=== PATIENT | male | born 1945 | race African-American/Black ===

== ENCOUNTER 2016-07-31 23:49 | Inpatient (IN) | payer MEDICARE, OTHER ==
[2016-08-01] MEDS ORDERED: LIDOCAINE 2% URO-JET 5 ML KIT MM ONE (00:12)
--- NOTE | 2016-08-01 00:31 | ER Document Report ---
ED General - General Chief Complaint: Altered Mental Status Stated Complaint: ALTERED MENTAL STATUS Time Seen by Provider: 08/01/16 00:16 Notes: Patient is a 70-year-old male who comes emergency department with chief complaint of altered mental status. is at bedside, she states that 1330 patient started to act strange, she states he started to become forgetful mid conversation, she states that later in the evening he made a bizarre statement which made her concerned (he asked how far the child support payment center is from his relative's house). He states he also had an episode of incontinence earlier in the day which is uncharacteristic. No fever, no head injury. Patient states he has a slight headache on the left side of his head, states he did not mention this until after they came to the emergency department. Daily baby aspirin. Past medical history of HI in 2012, type 2 diabetes, hypertension, hyperlipidemia, he is on metoprolol for a "rapid heart rate", to confirm atrial fibrillation or SVT. TRAVEL OUTSIDE OF THE [place] IN LAST 30 DAYS: No - Related Data Allergies/Adverse Reactions: No Known Allergies Allergy (Unverified 05/24/13 20:06) Past Medical History - General Information source: Patient - Social History Smoking Status: Never Smoker Frequency of alcohol use: None Drug Abuse: None Lives with: Family Family History: Reviewed & Not Pertinent Patient has suicidal ideation: No Patient has homicidal ideation: No - Past Medical History Cardiac Medical History: Reports: Hx Coronary Artery Disease, Hx Hypercholesterolemia, Hx Hypertension Endocrine Medical History: Reports: Hx Diabetes Mellitus Type 2 Renal/ Medical History: Denies: Hx Peritoneal Dialysis Psychiatric Medical History: Denies: Hx Depression - Immunizations Immunizations up to date: Yes Hx Diphtheria, Pertussis, Tetanus Vaccination: Yes Hx Pneumococcal Vaccination: 03/16/12 Review of Systems - Review of Systems Constitutional: No symptoms reported EENT: No symptoms reported Cardiovascular: No symptoms reported Respiratory: No symptoms reported Gastrointestinal: No symptoms reported Genitourinary: No symptoms reported Male Genitourinary: No symptoms reported Musculoskeletal: No symptoms reported Skin: No symptoms reported Hematologic/Lymphatic: No symptoms reported Neurological/Psychological: See HPI Physical Exam - Vital signs Vitals: Temp Pulse Resp BP Pulse Ox 97.6 F 85 18 141/85 H 100 07/31/16 23:55 07/31/16 23:55 07/31/16 23:55 07/31/16 23:55 07/31/16 23:55 Interpretation: Normal - General General appearance: Appears well, Alert In distress: None - HEENT Head: Normocephalic, Atraumatic Eyes: Normal Conjunctiva: Normal Extraocular movements intact: Yes Eyelashes: Normal Pupils: PERRL Sinus: Normal Nasal: Normal Mouth/Lips: Normal Mucous membranes: Normal Pharynx: Normal Neck: Normal - Respiratory Respiratory status: No respiratory distress Chest status: Nontender Breath sounds: Normal Chest palpation: Normal - Cardiovascular Rhythm: Regular. No: Tachycardia Heart sounds: Normal auscultation, S1 appreciated, S2 appreciated Murmur: No - Abdominal Inspection: Normal Distension: No distension Bowel sounds: Normal Tenderness: Nontender Organomegaly: No organomegaly - Back Back: Normal, Nontender. No: Tender - Extremities General upper extremity: Normal inspection, Nontender, Normal strength, Normal temperature General lower extremity: Normal inspection, Nontender, Normal strength, Normal temperature - Neurological Neuro grossly intact: Yes Cognition: Normal, Other - occassionally gives slow response, fully oriented except cannot remember president (knows person, family, year, month, and location) Orientation: AAOx4. No: Disoriented to person, Disoriented to place, Disoriented to time, Disoriented to events [place] Coma Scale Eye Opening: Spontaneous [place] Coma Scale Verbal: Oriented [place] Coma Scale Motor: Obeys Commands [place] Coma Scale Total: 15 Speech: Normal Motor strength normal: LUE, RUE, LLE, RLE Additional motor exam normals: Equal patient liaison Sensory: Normal - Psychological Associated symptoms: Normal affect, Normal mood - Skin Skin Temperature: Warm Skin Moisture: Dry Skin Color: Normal Course - Re-evaluation Re-evalutation: Patient is oriented to person, place, family members, he is slow to respond to questions, he is oriented to month and year but cannot remember the president. He states he feels like he is having trouble remembering things. No neurologic deficits on examination otherwise. Pending workup. 08/01/16 00:30 EKG showed segment elevation in anterior leads, shows what appears to be a sinus arrhythmia with P waves that are present, rate of 80. No significant changes compared to prior. Appears to be J-point elevation. This was reviewed with Dr. Banks. CBC, chemistry, urinalysis generally unremarkable. Cardiac enzymes negative. Chest x-ray is unremarkable CAT scan of the head showing left basal ganglia lesion - mass versus CVA. Discussed with Dr. Banks, recommends neurosurgical consult. 08/01/[address] Jag Hutton, neurosurgery at [facility]. He recommends that patient be worked up to evaluate if this is CVA versus mass with MRI, and if this is a mass that patient can be seen in the office on Thursday with an oral steroid treatment pending followup. Obviously if this is CVA then patient can be treated accordingly. Discussed with Dr. Banks again, recommends discussion with internal medicine for workup and treatment. Discussed with Dr. Guzman, patient will be admitted to the hospital, MRI is ordered (confirmed order preference with radiologist). Patient remains neurologically unchanged at time of admission. - Vital Signs Vital signs: Temp Pulse Resp BP Pulse Ox 97.6 F 85 18 141/85 H 99 07/31/16 23:55 07/31/16 23:55 07/31/16 23:55 07/31/16 23:55 08/01/16 00:12 - Laboratory Result Diagrams: 08/01/16 00:50 08/01/16 00:50 Laboratory results interpreted by me: 08/01/16 08/01/16 08/01/16 00:50 00:50 02:10 Hgb 12.9 L RDW 14.2 H BUN 21 H Creatinine 1.29 H Est GFR (Non-Af Amer) 55 L Direct Bilirubin 0.5 H Urine Protein 100 H Urine Glucose (UA) 50 H Discharge - Discharge Clinical Impression: Abnormal CT scan of head Altered mental status Qualifiers: Altered mental status type: transient alteration of awareness Qualified Code(s) : R40.4 - Transient alteration of awareness Condition: Stable Disposition: ADMITTED INPATIENT Admitting Provider: Megan Unit Admitted: [facility]
[2016-08-01 01:04] LABS: ABSOLUTE EOSINOPHILS # (AUTO) 0.1 10^3/uL (0.0-0.6); ABSOLUTE LYMPHOCYTES (AUTO) 1.8 10^3/uL (0.5-4.7); ABSOLUTE MONOCYTES (AUTO) 0.7 10^3/uL (0.1-1.4); ABSOLUTE NEUT (AUTO) 3.1 10^3/uL (1.7-8.2); BASOPHILS % (AUTO) 0.7 % (0-2); EOSINOPHILS % (AUTO) 1.5 % (0-6); HEMATOCRIT 39.7 % (37.9-51.0); HEMOGLOBIN 12.9 g/dL (13.5-17.0); MEAN CORPUSCULAR HEMOGLOBIN 27.2 pg (27.0-33.4); MEAN CORPUSCULAR HGB CONC 32.6 g/dL (32.0-36.0); MEAN CORPUSCULAR VOLUME 83 fl (80-97); MONOCYTES % (AUTO) 12.5 % (3-13); RED BLOOD COUNT 4.76 10^6/uL (4.35-5.55); RED CELL DISTRIBUTION WIDTH 14.2 % (11.5-14.0); SEGMENTED NEUTROPHILS % (AUTO) 54.3 % (42-78); WHITE BLOOD COUNT 5.7 10^3/uL (4.0-10.5)
[2016-08-01 01:16] LABS: ALANINE AMINOTRANSFERASE 36 U/L (21-72); ALBUMIN 4.3 g/dL (3.5-5.0); ALKALINE PHOSPHATASE 73 U/L (38-126); ANION GAP 12 (5-19); ASPARTATE AMINO TRANSFERASE 23 U/L (17-59); BILIRUBIN,DIRECT 0.5 mg/dL (0.0-0.4); BILIRUBIN,TOTAL 0.9 mg/dL (0.2-1.3); BLOOD UREA NITROGEN 21 mg/dL (7-20); CALCIUM 9.8 mg/dL (8.4-10.2); CARBON DIOXIDE 25 mmol/L (22-30); CHLORIDE 106 mmol/L (98-107); CREATINE KINASE 102 U/L (55-170); CREATININE RESULT 1.29 mg/dL (0.52-1.25); GLUCOSE 95 mg/dL (75-110); MAGNESIUM 1.8 mg/dL (1.6-2.3); POTASSIUM 4.3 mmol/L (3.6-5.0); SODIUM 142.9 mmol/L (137-145); TOTAL PROTEIN 7.6 g/dL (6.3-8.2)
[2016-08-01 01:17] LABS: ALCOHOL < 10 mg/dL (NONE DETECTED)
[2016-08-01 01:33] LABS: CREATINE KINASE MB 0.68 ng/mL (<4.55)
[2016-08-01 01:34] LABS: TROPONIN I < 0.012 ng/mL
[2016-08-01 02:31] LABS: APPEARANCE,URINE CLEAR; BILIRUBIN,URINE NEGATIVE (NEGATIVE); GLUCOSE, URINE 50 mg/dL (NEGATIVE); KETONES,URINE NEGATIVE (NEGATIVE); LEUKOCYTE ESTERASE,URINE NEGATIVE (NEGATIVE); NITRITE,URINE NEGATIVE (NEGATIVE); PROTEIN,URINE 100 mg/dL (NEGATIVE); URINE SPECIFIC GRAVITY 1.015; UROBILINOGEN,URINE NEGATIVE mg/dL (<2.0)
[2016-08-01 02:46] LABS: URINE BARBITURATES SCREEN NEGATIVE; URINE METHADONE SCREEN NEGATIVE; URINE OPIATES LOW NEGATIVE; URINE PHENCYCLIDINE SCREEN NEGATIVE
[2016-08-01] MEDS ORDERED: ACETAMINOPHEN 325 MG TABLET PO ONE (04:32)
--- NOTE | 2016-08-01 07:09 | EKG REPORT ---
SEVERITY:- ABNORMAL ECG - ATRIAL FIBRILLATION, V-RATE 79-81 LAD, CONSIDER LAFB OR INFERIOR INFARCT LEFT VENTRICULAR HYPERTROPHY ANTERIOR INFARCT, POSSIBLY ACUTE : Confirmed by: Viktoriya Cordon MD 01-Aug-2016 07:09:12
[2016-08-01] MEDS ORDERED: DEXTROSE 50%-WATER 25 GM/50 ML DISP.SYRIN IV PRN ×2 (11:55)
[2016-08-01] MEDS ORDERED: DEXTROSE 40% GEL 15 GM TUBE PO PRN ×2 (11:55)
[2016-08-01] MEDS ORDERED: GLUCAGON,HUMAN RECOMB 1 MG INJ IM PRN (11:55)
[2016-08-01] MEDS ORDERED: (PENDING PHARMACY ID) (Alogliptin Benz/Pioglitazone [Oseni 25-30 Mg Tablet] 1 TAB) PO SCH (12:00)
[2016-08-01] MEDS ORDERED: (PENDING PHARMACY ID) (Valsartan [Diovan] 320 MG) PO SCH (12:00)
[2016-08-01] MEDS ORDERED: METOPROLOL TARTRATE 100 MG TABLET PO ONE (12:30)
[2016-08-01] MEDS ORDERED: MONTELUKAST SODIUM 10 MG TABLET PO ONE (12:30)
[2016-08-01] MEDS ORDERED: VALSARTAN 160 MG TABLET PO ONE (13:00)
[2016-08-01] MEDS ORDERED: ASPIRIN 81 MG TABLET, ENT COATED PO ONE (13:00)
[2016-08-01] MEDS ORDERED: GLIMEPIRIDE 4 MG TABLET PO ONE (13:00)
[2016-08-01] MEDS ORDERED: LORATADINE 10 MG TABLET PO ONE (13:00)
[2016-08-01] MEDS: METFORMIN HCL 500 MG TABLET PO SCH (17:07)
[2016-08-01] MEDS: ASPIRIN/DIPYRIDAMOLE 25-200 MG 1 CAP.SR CPMP.12HR PO SCH (18:33)
[2016-08-01 18:37] LABS: ABSOLUTE BASOPHILS # (AUTO) 0.1 10^3/uL (0.0-0.2); ABSOLUTE LYMPHOCYTES (AUTO) 1.5 10^3/uL (0.5-4.7); ABSOLUTE MONOCYTES (AUTO) 0.7 10^3/uL (0.1-1.4); ABSOLUTE NEUT (AUTO) 4.8 10^3/uL (1.7-8.2); BASOPHILS % (AUTO) 0.8 % (0-2); EOSINOPHILS % (AUTO) 0.7 % (0-6); HEMATOCRIT 40.4 % (37.9-51.0); HEMOGLOBIN 13.2 g/dL (13.5-17.0); HGB HCT DIFFERENCE -0.8; MEAN CORPUSCULAR HEMOGLOBIN 27.1 pg (27.0-33.4); MEAN CORPUSCULAR HGB CONC 32.7 g/dL (32.0-36.0); MEAN CORPUSCULAR VOLUME 83 fl (80-97); MONOCYTES % (AUTO) 9.2 % (3-13); RED BLOOD COUNT 4.88 10^6/uL (4.35-5.55); RED CELL DISTRIBUTION WIDTH 14.5 % (11.5-14.0); SEGMENTED NEUTROPHILS % (AUTO) 68.3 % (42-78); WHITE BLOOD COUNT 7.1 10^3/uL (4.0-10.5)
[2016-08-01 18:54] LABS: PROTHROMBIN TIME 11.9 SEC (11.4-15.4)
[2016-08-01 18:59] LABS: ALANINE AMINOTRANSFERASE 35 U/L (21-72); ALBUMIN 3.8 g/dL (3.5-5.0); ALKALINE PHOSPHATASE 76 U/L (38-126); ANION GAP 10 (5-19); ASPARTATE AMINO TRANSFERASE 20 U/L (17-59); BILIRUBIN,DIRECT 0.3 mg/dL (0.0-0.4); BILIRUBIN,TOTAL 0.7 mg/dL (0.2-1.3); BLOOD UREA NITROGEN 23 mg/dL (7-20); CALCIUM 9.4 mg/dL (8.4-10.2); CARBON DIOXIDE 24 mmol/L (22-30); CHLORIDE 101 mmol/L (98-107); CREATINE KINASE 68 U/L (55-170); CREATININE RESULT 1.32 mg/dL (0.52-1.25); GLUCOSE 390 mg/dL (75-110); POTASSIUM 4.8 mmol/L (3.6-5.0); SODIUM 135.1 mmol/L (137-145); TOTAL PROTEIN 6.7 g/dL (6.3-8.2)
--- NOTE | 2016-08-01 20:34 | PDOC H&P ---
History of Present Illness Admission Date/PCP: 08/01/16 11:55 AMENA BROWNE MD History of Present Illness: YOLY DIANE is a 70 year old male, he came to the emergency room this morning with his because of encephalopathy, patient spouse stated that that the patient has become more forgetful recently, he also had episode of urinary incontinence which is uncharacteristic , he also had a headache. He was seen and evaluated in the emergency room, initially CT scan of the head was done , it showed 3.7 low attenuation heterogeneous mass of the left anterior basal ganglia with moderate compression of the frontal horn the left lateral ventricle. The CAT scan of the head , could not differentiate between a stroke or neoplasm, MRI of the head recommended. MRI showed high-signal intensity lesions scattered throughout the white matter on flair imaging with distribution suggesting microvascular ischemic change. There was also rounded area of abnormal signal in the left lentiform nucleus measuring 2.5 x 3.5 cm. On diffusion imaging there is heterogeneous increased signal in the left basal ganglia most likely representing a recent subacute infarct. Past Medical History Cardiac Medical History: Reports: Coronary Artery Disease, Hyperlipidema, Hypertension Endocrine Medical History: Reports: Diabetes Mellitus Type 2 Social History Lives with: Family Smoking Status: Never Smoker Frequency of Alcohol Use: None Hx Recreational Drug Use: No Drugs: None Hx Prescription Drug Abuse: No Family History Family History: Reviewed & Not Pertinent Parental Family History Reviewed: Yes Children Family History Reviewed: Yes Sibling(s) Family History Reviewed.: Yes Medication/Allergy Home Medications: Alogliptin Chrsi/Pioglitazone [Oseni 25-30 mg Tablet] 1 tab PO DAILY 08/01/16 Aspirin [Ecotrin 81 mg EC Tablet] 81 mg PO DAILY 08/01/16 Atorvastatin Calcium [Lipitor 80 mg Tablet] 80 mg PO QHS 08/01/16 Fexofenadine HCl [Aure] 180 mg PO DAILY 08/01/16 Glimepiride [Amaryl 4 mg Tablet] 4 mg PO DAILY 08/01/16 Insulin Aspart [Novolog Flexpen] 0 unit SUBCUT .SLD SCALE 08/01/16 Insulin Glargine,Hum.rec.anlog [Lantus Insulin 100 Unit/mL] 45 unit SUBCUT QHS 08/01/16 Metformin HCl [Glucophage] 1,000 mg PO BIDACBS 08/01/16 Metoprolol Tartrate [Lopressor 100 mg Tablet] 200 mg PO DAILY 08/01/16 Montelukast Sodium [Singulair 10 mg Tablet] 10 mg PO DAILY 08/01/16 Valsartan [Diovan] 320 mg PO DAILY 08/01/16 Allergies/Adverse Reactions: No Known Allergies Allergy (Unverified 05/24/13 20:06) Review of Systems Constitutional: ABSENT: chills, fever(s), headache(s), weight gain, weight loss Eyes: ABSENT: visual disturbances Ears: ABSENT: hearing changes Cardiovascular: ABSENT: chest pain, dyspnea on exertion, edema, orthropnea, palpitations Respiratory: ABSENT: cough, hemoptysis Gastrointestinal: ABSENT: abdominal pain, constipation, diarrhea, hematemesis, hematochezia, nausea, vomiting Genitourinary: ABSENT: dysuria, hematuria Musculoskeletal: ABSENT: joint swelling Integumentary: ABSENT: rash, wounds Neurological: PRESENT: memory loss, paresthesias. ABSENT: abnormal gait, abnormal speech, confusion, dizziness, focal weakness, syncope Psychiatric: ABSENT: anxiety, depression, homidical ideation, suicidal ideation Endocrine: ABSENT: cold intolerance, heat intolerance, menstrual abnormalities, polydipsia, polyuria Hematologic/Lymphatic: ABSENT: easy bleeding, easy bruising, lymphadenopathy Physical Exam Vital Signs: Temp Pulse Resp BP Pulse Ox 98.1 F 86 16 121/73 100 08/01/16 14:15 08/01/16 14:34 08/01/16 14:15 08/01/16 14:15 08/01/16 14:15 Intake & Output 07/31/16 08/01/16 08/02/16 06:59 06:59 06:59 Intake Total 245 Output Total 0 Balance 245 General appearance: PRESENT: no acute distress, well-developed, well-nourished Head exam: PRESENT: atraumatic, normocephalic Eye exam: PRESENT: EOMI, PERRLA Ear exam: PRESENT: normal external ear exam Mouth exam: PRESENT: moist, tongue midline Neck exam: PRESENT: full ROM Cardiovascular exam: PRESENT: RRR, +S1, +S2 Pulses: PRESENT: normal dorsalis pedis pul, +2 pedal pulses bilateral Vascular exam: PRESENT: normal capillary refill GI/Abdominal exam: PRESENT: normal bowel sounds, soft Rectal exam: PRESENT: deferred Neurological exam: PRESENT: alert, awake, oriented to person, oriented to place , oriented to time, oriented to situation, CN II-XII grossly intact Psychiatric exam: PRESENT: appropriate affect, normal mood Skin exam: PRESENT: dry, intact, warm Results Laboratory Results: 08/01/16 18:19 08/01/16 18:19 08/01/16 08/01/16 18:19 18:19 WBC 7.1 RBC 4.88 Hgb 13.2 L Hct 40.4 MCV 83 MCH 27.1 MCHC 32.7 RDW 14.5 H Plt Count 226 Seg Neutrophils % 68.3 Lymphocytes % 21.0 Monocytes % 9.2 Eosinophils % 0.7 Basophils % 0.8 Absolute Neutrophils 4.8 Absolute Lymphocytes 1.5 Absolute Monocytes 0.7 Absolute Eosinophils 0.0 Absolute Basophils 0.1 Sodium 135.1 L Potassium 4.8 Chloride 101 Carbon Dioxide 24 Anion Gap 10 BUN 23 H Creatinine 1.32 H Est GFR ( Amer) > 60 Est GFR (Non-Af Amer) 54 L Glucose 390 H Calcium 9.4 Total Bilirubin 0.7 AST 20 ALT 35 Alkaline Phosphatase 76 Total Protein 6.7 Albumin 3.8 08/01/16 08/01/16 08/01/16 18:19 18:19 18:19 Creatine Kinase 68 CK-MB (CK-2) 0.45 Troponin I < 0.012 Impressions: Head CT 08/01/16 00:26 IMPRESSION: 3.7 cm low attenuation lesion with mass-effect of the anterior left basal ganglia. Differential diagnosis includes subacute infarct or neoplasm. Contrast MRI recommended. Chest X-Ray 08/01/16 00:27 IMPRESSION: NO ACUTE RADIOGRAPHIC FINDING IN THE CHEST. Head MRI 08/01/16 03:32 IMPRESSION: ABNORMALITY IN THE LEFT BASAL GANGLIA DESCRIBED MOST LIKELY REPRESENTING RECENT SUBACUTE INFARCT. NONENHANCING MALIGNANCY SUCH A LOW- GRADE GLIOMA NOT ENTIRELY EXCLUDED BUT WOULD BE LESS LIKELY. FOLLOW-UP MRI IN SEVERAL DAYS MAY BE HELPFUL TO FOLLOW FOR ANY PROGRESSION OR IMPROVEMENT OF THIS FINDING. Assessment & Plan - Diagnosis (1) Embolic stroke of left basal ganglia Is this a current diagnosis for this admission?: YesPlan: He has multiple risk factors for stroke, he probably sustained embolic stroke of the left basal ganglia, he will be admitted to the hospital and be treated according to the stroke protocol, orders in the chart (2) Diabetes mellitus Qualifiers: Diabetes mellitus type: type 2 Diabetes mellitus complication status: with neurologic complications Diabetes mellitus complication detail: with polyneuropathy Diabetes mellitus skilled nursing insulin use: with skilled nursing use Qualified Code(s): E11.42 - Type 2 diabetes mellitus with diabetic polyneuropathy; Z79.4 - [facility] (current) use of insulin Is this a current diagnosis for this admission?: Yes (3) Coronary artery disease Qualifiers: Coronary Disease-Associated Artery/Lesion type: [place] artery [place] vs. transplanted heart: [place] heart Associated angina: without angina Qualified Code(s): I25.10 - Atherosclerotic heart disease of [place] coronary artery without angina pectoris Is this a current diagnosis for this admission?: Yes
[2016-08-01] MEDS: INSULIN LISPRO 100 UNIT/ML 3 ML VIAL SUBCUT PRN (22:15)
[2016-08-01] MEDS: INSULIN GLARGINE,HUM.REC.ANLOG 300 UNIT/3 ML INSULN.PEN SUBCUT SCH (22:15)
[2016-08-01] MEDS: ATORVASTATIN CALCIUM 80 MG TABLET PO SCH (22:15)
[2016-08-02] MEDS: ASPIRIN/DIPYRIDAMOLE 25-200 MG 1 CAP.SR CPMP.12HR PO SCH ×2 (05:35→17:51)
[2016-08-02 06:35] LABS: HEMATOCRIT 38.7 % (37.9-51.0); HEMOGLOBIN 13.4 g/dL (13.5-17.0); HGB HCT DIFFERENCE 1.5; MEAN CORPUSCULAR HGB CONC 34.6 g/dL (32.0-36.0); MEAN CORPUSCULAR VOLUME 81 fl (80-97); RED BLOOD COUNT 4.79 10^6/uL (4.35-5.55); RED CELL DISTRIBUTION WIDTH 14.2 % (11.5-14.0); WHITE BLOOD COUNT 7.9 10^3/uL (4.0-10.5)
[2016-08-02 06:54] LABS: ANION GAP 13 (5-19); BLOOD UREA NITROGEN 24 mg/dL (7-20); CALCIUM 9.6 mg/dL (8.4-10.2); CARBON DIOXIDE 22 mmol/L (22-30); CHLORIDE 104 mmol/L (98-107); CHOLESTEROL 119.09 mg/dL (0-200); CREATININE RESULT 1.26 mg/dL (0.52-1.25); Direct HDL 32 mg/dL (>40); GLUCOSE 310 mg/dL (75-110); POTASSIUM 4.5 mmol/L (3.6-5.0); SODIUM 138.9 mmol/L (137-145); TRIGLYCERIDES 172 mg/dL (<150)
[2016-08-02 07:04] LABS: DIRECT LDL 47 mg/dL (<100)
[2016-08-02 07:11] LABS: VLDL CHOLESTEROL 34.4 mg/dL (10-31)
[2016-08-02] MEDS: METFORMIN HCL 500 MG TABLET PO SCH ×2 (08:11→15:48)
[2016-08-02] MEDS: INSULIN LISPRO 100 UNIT/ML 3 ML VIAL SUBCUT PRN ×3 (08:11→21:34)
[2016-08-02] MEDS: ENOXAPARIN SODIUM INJ 40 MG/0.4 ML DISP.SYRIN SUBCUT SCH (08:11)
--- NOTE | 2016-08-02 09:10 | PDOC PROGRESS REPORT ---
Subjective Progress Note for:: 08/02/16 Subjective:: Patient is apparently doing well denied any headache denied any dizziness denied any blurry vision. Patient's denied any chest pain denied any shortness of the breath. Patient was admitted because of the subacute basal ganglion stroke versus enhancing mass lesion in the confusions. Patient's denied any other symptoms and feeling much better. Patient's appropriately answer all my questions today and fully alert awake and oriented 3 Physical Exam Vital Signs: Temp Pulse Resp BP Pulse Ox 99.1 F 91 16 123/72 95 08/02/16 08:11 08/02/16 08:11 08/02/16 08:11 08/02/16 08:11 08/02/16 08:11 Intake & Output 08/01/16 08/02/16 08/03/16 06:59 06:59 06:59 Intake Total 850 Output Total 0 Balance 850 Weight 88.5 kg General appearance: PRESENT: no acute distress, well-developed, well-nourished Head exam: PRESENT: atraumatic, normocephalic Eye exam: PRESENT: conjunctiva pink, EOMI, PERRLA. ABSENT: scleral icterus Ear exam: PRESENT: normal external ear exam Mouth exam: PRESENT: moist, tongue midline Neck exam: PRESENT: full ROM. ABSENT: carotid bruit, JVD, lymphadenopathy, thyromegaly Respiratory exam: PRESENT: clear to auscultation marquita Cardiovascular exam: PRESENT: RRR. ABSENT: diastolic murmur, rubs, systolic murmur Pulses: PRESENT: normal dorsalis pedis pul, +2 pedal pulses bilateral Vascular exam: PRESENT: normal capillary refill GI/Abdominal exam: PRESENT: normal bowel sounds, soft. ABSENT: distended, guarding, mass, organolmegaly, rebound, tenderness Rectal exam: PRESENT: deferred Neurological exam: PRESENT: alert, awake, oriented to person, oriented to place , oriented to time, oriented to situation, reflexes normal, CN II-XII grossly intact, normal gait. ABSENT: motor sensory deficit Psychiatric exam: PRESENT: appropriate affect, normal mood. ABSENT: homicidal ideation, suicidal ideation Skin exam: PRESENT: dry, intact, warm. ABSENT: cyanosis, rash Results Laboratory Results: 08/02/16 06:15 08/02/16 06:15 08/01/16 08/01/16 08/02/16 18:19 18:19 06:15 WBC 7.1 7.9 RBC 4.88 4.79 Hgb 13.2 L 13.4 L Hct 40.4 38.7 MCV 83 81 MCH 27.1 28.0 MCHC 32.7 34.6 RDW 14.5 H 14.2 H Plt Count 226 230 Seg Neutrophils % 68.3 Lymphocytes % 21.0 Monocytes % 9.2 Eosinophils % 0.7 Basophils % 0.8 Absolute Neutrophils 4.8 Absolute Lymphocytes 1.5 Absolute Monocytes 0.7 Absolute Eosinophils 0.0 Absolute Basophils 0.1 Sodium 135.1 L Potassium 4.8 Chloride 101 Carbon Dioxide 24 Anion Gap 10 BUN 23 H Creatinine 1.32 H Est GFR ( Amer) > 60 Est GFR (Non-Af Amer) 54 L Glucose 390 H Calcium 9.4 Total Bilirubin 0.7 AST 20 ALT 35 Alkaline Phosphatase 76 Total Protein 6.7 Albumin 3.8 Triglycerides Cholesterol LDL Cholesterol Direct VLDL Cholesterol HDL Cholesterol 08/02/16 06:15 WBC RBC Hgb Hct MCV MCH MCHC RDW Plt Count Seg Neutrophils % Lymphocytes % Monocytes % Eosinophils % Basophils % Absolute Neutrophils Absolute Lymphocytes Absolute Monocytes Absolute Eosinophils Absolute Basophils Sodium 138.9 Potassium 4.5 Chloride 104 Carbon Dioxide 22 Anion Gap 13 BUN 24 H Creatinine 1.26 H Est GFR ( Amer) > 60 Est GFR (Non-Af Amer) 57 L Glucose 310 H Calcium 9.6 Total Bilirubin AST ALT Alkaline Phosphatase Total Protein Albumin Triglycerides 172 H Cholesterol 119.09 LDL Cholesterol Direct 47 VLDL Cholesterol 34.4 H HDL Cholesterol 32 L 08/01/16 08/01/16 08/01/16 18:19 18:19 18:19 Creatine Kinase 68 CK-MB (CK-2) 0.45 Troponin I < 0.012 08/02/16 08/02/16 00:31 06:15 Creatine Kinase CK-MB (CK-2) Troponin I < 0.012 < 0.012 Impressions: Head CT 08/01/16 00:26 IMPRESSION: 3.7 cm low attenuation lesion with mass-effect of the anterior left basal ganglia. Differential diagnosis includes subacute infarct or neoplasm. Contrast MRI recommended. Chest X-Ray 08/01/16 00:27 IMPRESSION: NO ACUTE RADIOGRAPHIC FINDING IN THE CHEST. Head MRI 08/01/16 03:32 IMPRESSION: ABNORMALITY IN THE LEFT BASAL GANGLIA DESCRIBED MOST LIKELY REPRESENTING RECENT SUBACUTE INFARCT. NONENHANCING MALIGNANCY SUCH A LOW- GRADE GLIOMA NOT ENTIRELY EXCLUDED BUT WOULD BE LESS LIKELY. FOLLOW-UP MRI IN SEVERAL DAYS MAY BE HELPFUL TO FOLLOW FOR ANY PROGRESSION OR IMPROVEMENT OF THIS FINDING. Assessment & Plan - Diagnosis (1) Embolic stroke of left basal ganglia Is this a current diagnosis for this admission?: YesPlan: Continues in a stroke and patient scheduled for MRI of the head (2) Altered mental status Qualifiers: Altered mental status type: transient alteration of awareness Qualified Code(s): R40.4 - Transient alteration of awareness Is this a current diagnosis for this admission?: YesPlan: Patient due to the underlying conditions from the stroke and patient's currently fully alert awake and oriented 3 (3) Diabetes mellitus Qualifiers: Diabetes mellitus type: type 2 Diabetes mellitus complication status: with neurologic complications Diabetes mellitus complication detail: with polyneuropathy Diabetes mellitus correction insulin use: with correction use Qualified Code(s): E11.42 - Type 2 diabetes mellitus with diabetic polyneuropathy; Z79.4 - [facility] (current) use of insulin Is this a current diagnosis for this admission?: YesPlan: Continues current medications (4) Coronary artery disease Qualifiers: Coronary Disease-Associated Artery/Lesion type: [place] artery [place] vs. transplanted heart: [place] heart Associated angina: without angina Qualified Code(s): I25.10 - Atherosclerotic heart disease of [place] coronary artery without angina pectoris Is this a current diagnosis for this admission?: YesPlan: All stable - Time Time Spent with patient: 15-24 minutes Medications reviewed and adjusted accordingly: Yes Anticipated discharge: Home Within: Other - Inpatient Certification Medical Necessity: Need Close Monitoring Due to Risk of Patient Decompensation Post Hospital Care: D/C Desktop Administrator Documentation - Plan Summary Plan Summary: cont curr med
[2016-08-02] MEDS ORDERED: ASPIRIN 81 MG TABLET, ENT COATED PO SCH (10:00)
[2016-08-02] MEDS: MONTELUKAST SODIUM 10 MG TABLET PO SCH (10:04)
[2016-08-02] MEDS: METOPROLOL TARTRATE 100 MG TABLET PO SCH (10:04)
[2016-08-02] MEDS: VALSARTAN 160 MG TABLET PO SCH (10:05)
[2016-08-02] MEDS: LORATADINE 10 MG TABLET PO SCH (10:05)
[2016-08-02] MEDS: GLIMEPIRIDE 4 MG TABLET PO SCH (10:06)
[2016-08-02] MEDS: ATORVASTATIN CALCIUM 80 MG TABLET PO SCH (21:09)
[2016-08-02] MEDS: INSULIN GLARGINE,HUM.REC.ANLOG 300 UNIT/3 ML INSULN.PEN SUBCUT SCH (21:25)
[2016-08-02] MEDS ORDERED: ACETAMINOPHEN 325 MG TABLET PO PRN (21:57)
[2016-08-03 06:28] LABS: MEAN CORPUSCULAR HEMOGLOBIN 27.7 pg (27.0-33.4); MEAN CORPUSCULAR HGB CONC 34.3 g/dL (32.0-36.0); MEAN CORPUSCULAR VOLUME 81 fl (80-97); RED CELL DISTRIBUTION WIDTH 14.3 % (11.5-14.0); WHITE BLOOD COUNT 8.2 10^3/uL (4.0-10.5)
[2016-08-03] MEDS: ASPIRIN/DIPYRIDAMOLE 25-200 MG 1 CAP.SR CPMP.12HR PO SCH ×2 (06:46→17:44)
[2016-08-03 07:03] LABS: ANION GAP 13 (5-19); BLOOD UREA NITROGEN 23 mg/dL (7-20); CALCIUM 9.3 mg/dL (8.4-10.2); CARBON DIOXIDE 20 mmol/L (22-30); CHLORIDE 106 mmol/L (98-107); CREATININE RESULT 1.12 mg/dL (0.52-1.25); GLUCOSE 220 mg/dL (75-110); POTASSIUM 4.3 mmol/L (3.6-5.0); SODIUM 138.5 mmol/L (137-145)
[2016-08-03] MEDS: METFORMIN HCL 500 MG TABLET PO SCH ×2 (08:55→16:28)
[2016-08-03] MEDS: INSULIN LISPRO 100 UNIT/ML 3 ML VIAL SUBCUT PRN ×4 (08:55→21:35)
[2016-08-03] MEDS: ENOXAPARIN SODIUM INJ 40 MG/0.4 ML DISP.SYRIN SUBCUT SCH (08:55)
[2016-08-03 09:36] LABS: APPEARANCE,URINE CLEAR; BILIRUBIN,URINE NEGATIVE (NEGATIVE); GLUCOSE, URINE >=500 mg/dL (NEGATIVE); KETONES,URINE NEGATIVE (NEGATIVE); LEUKOCYTE ESTERASE,URINE NEGATIVE (NEGATIVE); NITRITE,URINE NEGATIVE (NEGATIVE); PROTEIN,URINE 30 mg/dL (NEGATIVE); URINE SPECIFIC GRAVITY 1.014; UROBILINOGEN,URINE NEGATIVE mg/dL (<2.0)
--- NOTE | 2016-08-03 09:54 | PDOC PROGRESS REPORT ---
Subjective Progress Note for:: 08/03/16 Subjective:: Patient is currently doing well patient's carotid Doppler was all negative and patient's MRA of the head is negative. Patient's otherwise denied any headache denied any chest pain denied any shortness of the breath Physical Exam Vital Signs: Temp Pulse Resp BP Pulse Ox 98.8 F 82 16 131/80 H 97 08/03/16 07:40 08/03/16 08:00 08/03/16 08:00 08/03/16 08:00 08/03/16 08:00 Intake & Output 08/02/16 08/03/16 08/04/16 06:59 06:59 06:59 Intake Total 850 966 Output Total 0 Balance 850 966 Weight 88.5 kg 88.4 kg General appearance: PRESENT: no acute distress, well-developed, well-nourished Head exam: PRESENT: atraumatic, normocephalic Eye exam: PRESENT: conjunctiva pink, EOMI, PERRLA. ABSENT: scleral icterus Ear exam: PRESENT: normal external ear exam Mouth exam: PRESENT: moist, tongue midline Neck exam: PRESENT: full ROM. ABSENT: carotid bruit, JVD, lymphadenopathy, thyromegaly Respiratory exam: PRESENT: clear to auscultation marquita Cardiovascular exam: PRESENT: RRR. ABSENT: diastolic murmur, rubs, systolic murmur Pulses: PRESENT: normal dorsalis pedis pul, +2 pedal pulses bilateral Vascular exam: PRESENT: normal capillary refill GI/Abdominal exam: PRESENT: normal bowel sounds, soft. ABSENT: distended, guarding, mass, organolmegaly, rebound, tenderness Rectal exam: PRESENT: deferred Neurological exam: PRESENT: alert, awake, oriented to person, oriented to place , oriented to time, oriented to situation, CN II-XII grossly intact. ABSENT: motor sensory deficit Psychiatric exam: PRESENT: appropriate affect, normal mood. ABSENT: homicidal ideation, suicidal ideation Skin exam: PRESENT: dry, intact, warm. ABSENT: cyanosis, rash Results Laboratory Results: 08/03/16 05:40 08/03/16 05:40 08/03/16 08/03/16 08/03/16 05:40 05:40 08:58 WBC 8.2 RBC 4.70 Hgb 13.0 L Hct 38.0 MCV 81 MCH 27.7 MCHC 34.3 RDW 14.3 H Plt Count 217 Sodium 138.5 Potassium 4.3 Chloride 106 Carbon Dioxide 20 L Anion Gap 13 BUN 23 H Creatinine 1.12 Est GFR ( Amer) > 60 Est GFR (Non-Af Amer) > 60 Glucose 220 H Calcium 9.3 Urine Color YELLOW Urine Appearance CLEAR Urine pH 5.0 Ur Specific [place] 1.014 Urine Protein 30 H Urine Glucose (UA) >=500 H Urine Ketones NEGATIVE Urine Blood NEGATIVE Urine Nitrite NEGATIVE Ur Leukocyte Esterase NEGATIVE Urine WBC (Auto) 0 08/01/16 08/01/16 08/01/16 18:19 18:19 18:19 Creatine Kinase 68 CK-MB (CK-2) 0.45 Troponin I < 0.012 08/02/16 08/02/16 00:31 06:15 Creatine Kinase CK-MB (CK-2) Troponin I < 0.012 < 0.012 Impressions: Head CT 08/01/16 00:26 IMPRESSION: 3.7 cm low attenuation lesion with mass-effect of the anterior left basal ganglia. Differential diagnosis includes subacute infarct or neoplasm. Contrast MRI recommended. Chest X-Ray 08/01/16 00:27 IMPRESSION: NO ACUTE RADIOGRAPHIC FINDING IN THE CHEST. Head MRI 08/01/16 03:32 IMPRESSION: ABNORMALITY IN THE LEFT BASAL GANGLIA DESCRIBED MOST LIKELY REPRESENTING RECENT SUBACUTE INFARCT. NONENHANCING MALIGNANCY SUCH A LOW- GRADE GLIOMA NOT ENTIRELY EXCLUDED BUT WOULD BE LESS LIKELY. FOLLOW-UP MRI IN SEVERAL DAYS MAY BE HELPFUL TO FOLLOW FOR ANY PROGRESSION OR IMPROVEMENT OF THIS FINDING. Carotid Doppler Study 08/01/16 17:57 IMPRESSION: NO HEMODYNAMICALLY SIGNIFICANT STENOSIS. Brain MRI with MRA 08/02/16 08:00 IMPRESSION: NORMAL MRA OF THE [place]. Assessment & Plan - Diagnosis (1) Embolic stroke of left basal ganglia Is this a current diagnosis for this admission?: YesPlan: Continues in a stroke and patient scheduled for MRI of the head (2) Altered mental status Qualifiers: Altered mental status type: transient alteration of awareness Qualified Code(s): R40.4 - Transient alteration of awareness Is this a current diagnosis for this admission?: YesPlan: All resolved (3) Diabetes mellitus Qualifiers: Diabetes mellitus type: type 2 Diabetes mellitus complication status: with neurologic complications Diabetes mellitus complication detail: with polyneuropathy Diabetes mellitus meterman insulin use: with skilled nursing use Qualified Code(s): E11.42 - Type 2 diabetes mellitus with diabetic polyneuropathy; Z79.4 - half-way (current) use of insulin Is this a current diagnosis for this admission?: YesPlan: Continues current medications (4) Coronary artery disease Qualifiers: Coronary Disease-Associated Artery/Lesion type: [place] artery [place] vs. transplanted heart: [place] heart Associated angina: without angina Qualified Code(s): I25.10 - Atherosclerotic heart disease of [place] coronary artery without angina pectoris Is this a current diagnosis for this admission?: Yes - Time Time Spent with patient: 15-24 minutes Medications reviewed and adjusted accordingly: Yes Anticipated discharge: Home Within: Other - Inpatient Certification Medical Necessity: Need Close Monitoring Due to Risk of Patient Decompensation Post Hospital Care: D/C Communications Station Manager Documentation - Plan Summary Plan Summary: Discussed with the patient and the family about the all the test results and the room and currently no concern
[2016-08-03] MEDS: METOPROLOL TARTRATE 100 MG TABLET PO SCH (10:28)
[2016-08-03] MEDS: LORATADINE 10 MG TABLET PO SCH (10:29)
[2016-08-03] MEDS: MONTELUKAST SODIUM 10 MG TABLET PO SCH (10:29)
[2016-08-03] MEDS: GLIMEPIRIDE 4 MG TABLET PO SCH (10:29)
[2016-08-03] MEDS: VALSARTAN 160 MG TABLET PO SCH (10:30)
--- NOTE | 2016-08-03 12:48 | XCELERA REPORT ---
[address] [address] Transthoracic Echocardiogram Report Name: YOLY DIANE Age: 70 yrs Gender: Male : 1945 Patient Status: Inpatient Patient Location: [id number]\317\S\A Study Date: 08/02/2016 07:17 PM Height: 71 in Weight: 197 lb BSA: 2.1 m2 Procedure: A complete two-dimensional transthoracic echocardiogram was performed (2D, M-mode, spectral and color flow Doppler). The study was technically adequate with some images being suboptimal in quality. Reason For Study: cva Ordering Physician: AMENA BROWNE Performed By: Karina Odom Interpretation Summary The left ventricular ejection fraction is normal. Doppler measurements suggest pseudonormalized left ventricular relaxation, which is associated with grade II/IV or mild to moderate diastolic dysfunction There is mild concentric left ventricular hypertrophy. The left ventricle is grossly normal size. Wall motion cannot be accurately commented on, but no definite regional wall motion abnormalities noted. The right ventricle is grossly normal size. The right ventricular systolic function is normal. The right atrium is normal in size The left atrium is mildly dilated. There is a mild amount of mitral regurgitation There is no mitral valve stenosis. There is a trace to mild amount of aortic regurgitation There is no aortic valve stenosis There is a trace or physiologic amount of tricuspid regurgitation Tricuspid regurgitation jet envelope not well defined to measure RV systolic pressure accurately. The aortic root is not well visualized but is probably normal size. The inferior vena cava appeared normal and decreased > 50% with respiration (RAP 5-10 mmHg) There is no pericardial effusion. MMode/2D Measurements \T\ Calculations RVDd: 2.6 cm LVIDd: 4.4 cm FS: 40.5 % Ao root diam: 2.9 cm IVSd: 1.3 cm LVIDs: 2.6 cm EDV(Teich): 86.1 ml LVPWd: 1.3 cm ESV(Teich): 24.5 ml Ao root area: 6.7 cm2 EF(Teich): 71.5 % LA dimension: 4.4 cm Doppler Measurements \T\ Calculations MV E max neris: MV P1/2t max neris: Ao V2 max: AI max neris: 86.9 cm/sec 88.8 cm/sec 91.1 cm/sec 308.3 cm/sec MV A max neris: MV P1/2t: 68.6 msec Ao max PG: AI max P.7 cm/sec 3.3 mmHg 38.0 mmHg MV E/A: 0.89 MVA(P1/2t): 3.2 cm2 AI dec slope: MV dec slope: 379.6 cm/sec2 139.2 cm/sec2 MV dec time: AI P1/2t: 0.23 sec 648.8 msec LV V1 max PG: PA V2 max: 2.2 mmHg 76.0 cm/sec LV V1 max: PA max P.3 mmHg 73.5 cm/sec Left Ventricle The left ventricle is grossly normal size. There is mild concentric left ventricular hypertrophy. The left ventricular ejection fraction is normal. Doppler measurements suggest pseudonormalized left ventricular relaxation, which is associated with grade II/IV or mild to moderate diastolic dysfunction. Wall motion cannot be accurately commented on, but no definite regional wall motion abnormalities noted. Right Ventricle The right ventricle is grossly normal size. There is normal right ventricular wall thickness. The right ventricular systolic function is normal. Atria The right atrium is normal in size. The left atrium is mildly dilated. Interarterial septum not well visualized and not well dopplered. Cannot comment on ASD/PFO presence. Mitral Valve The mitral valve is grossly normal. There is no mitral valve stenosis. There is a mild amount of mitral regurgitation. Aortic Valve The aortic valve is not well visualized secondary to technical limitations. There is no aortic valve stenosis. There is a trace to mild amount of aortic regurgitation. Tricuspid Valve The tricuspid valve is not well visualized, but is grossly normal. There is no tricuspid stenosis. There is a trace or physiologic amount of tricuspid regurgitation. Tricuspid regurgitation jet envelope not well defined to measure RV systolic pressure accurately. Pulmonic Valve The pulmonic valve is not well visualized. Great Vessels The aortic root is not well visualized but is probably normal size. The inferior vena cava appeared normal and decreased > 50% with respiration (RAP 5-10 mmHg). Effusions There is no pericardial effusion. : AMENA BROWNE > Sheri Jean-Baptiste
[2016-08-03] MEDS ORDERED: INSULIN GLARGINE,HUM.REC.ANLOG 1,000 UNIT/10 ML UNIT SUBCUT ONE (21:27)
[2016-08-03] MEDS: ATORVASTATIN CALCIUM 80 MG TABLET PO SCH (21:29)
[2016-08-03] MEDS: INSULIN GLARGINE,HUM.REC.ANLOG 300 UNIT/3 ML INSULN.PEN SUBCUT SCH (22:00)
[2016-08-04 05:41] LABS: HEMATOCRIT 39.8 % (37.9-51.0); HEMOGLOBIN 13.3 g/dL (13.5-17.0); HGB HCT DIFFERENCE 0.1; MEAN CORPUSCULAR HEMOGLOBIN 27.3 pg (27.0-33.4); MEAN CORPUSCULAR HGB CONC 33.5 g/dL (32.0-36.0); MEAN CORPUSCULAR VOLUME 82 fl (80-97); RED BLOOD COUNT 4.87 10^6/uL (4.35-5.55); RED CELL DISTRIBUTION WIDTH 14.1 % (11.5-14.0)
[2016-08-04 06:03] LABS: ANION GAP 11 (5-19); BLOOD UREA NITROGEN 21 mg/dL (7-20); CALCIUM 9.7 mg/dL (8.4-10.2); CARBON DIOXIDE 22 mmol/L (22-30); CHLORIDE 106 mmol/L (98-107); CREATININE RESULT 1.04 mg/dL (0.52-1.25); GLUCOSE 142 mg/dL (75-110); POTASSIUM 4.3 mmol/L (3.6-5.0); SODIUM 138.8 mmol/L (137-145)
[2016-08-04] MEDS: ASPIRIN/DIPYRIDAMOLE 25-200 MG 1 CAP.SR CPMP.12HR PO SCH (06:31)
[2016-08-04] MEDS: ENOXAPARIN SODIUM INJ 40 MG/0.4 ML DISP.SYRIN SUBCUT SCH (08:29)
[2016-08-04] MEDS: METFORMIN HCL 500 MG TABLET PO SCH ×2 (08:29→15:46)
[2016-08-04] MEDS: LORATADINE 10 MG TABLET PO SCH (10:19)
[2016-08-04] MEDS: GLIMEPIRIDE 4 MG TABLET PO SCH (10:19)
[2016-08-04] MEDS: MONTELUKAST SODIUM 10 MG TABLET PO SCH (10:19)
[2016-08-04] MEDS: METOPROLOL TARTRATE 100 MG TABLET PO SCH (10:19)
[2016-08-04] MEDS: VALSARTAN 160 MG TABLET PO SCH (10:19)
[2016-08-04] MEDS: INSULIN LISPRO 100 UNIT/ML 3 ML VIAL SUBCUT PRN (12:00)
--- NOTE | 2016-08-04 15:36 | PDOC DISCHARGE SUMMARY ---
General - Admit/Disc Date/PCP Admission Date/Primary Care Provider: 08/01/16 11:55 AMENA BROWNE MD Discharge Date: 08/04/16 - Discharge Diagnosis (1) Embolic stroke of left basal ganglia Is this a current diagnosis for this admission?: Yes (2) Diabetes mellitus Is this a current diagnosis for this admission?: Yes (3) Coronary artery disease Is this a current diagnosis for this admission?: Yes - Additional Information Discharge Diet: Diabetic Discharge Activity: Activity As Tolerated Home Medications: Alogliptin Chris/Pioglitazone [Oseni 25-30 mg Tablet] 1 tab PO DAILY 08/01/16 Aspirin [Ecotrin 81 mg EC Tablet] 81 mg PO DAILY 08/01/16 Atorvastatin Calcium [Lipitor 80 mg Tablet] 80 mg PO QHS 08/01/16 Fexofenadine HCl [Aure] 180 mg PO DAILY 08/01/16 Glimepiride [Amaryl 4 mg Tablet] 4 mg PO DAILY 08/01/16 Insulin Aspart [Novolog Flexpen] 0 unit SUBCUT .SLD SCALE 08/01/16 Insulin Glargine,Hum.rec.anlog [Lantus Insulin 100 Unit/mL] 45 unit SUBCUT QHS 08/01/16 Metformin HCl [Glucophage] 1,000 mg PO BIDACBS 08/01/16 Montelukast Sodium [Singulair 10 mg Tablet] 10 mg PO DAILY 08/01/16 Valsartan [Diovan] 320 mg PO DAILY 08/01/16 Aspirin/Dipyridamole [Aggrenox 25 mg/200 mg Capsule SA] 1 cap.sr PO Q12A #180 cpmp.12hr 08/04/16 Blood-Gl & Bp Meter,Adult Cuff [Fora D40] 1 each AC #1 each 08/04/16 Metoprolol Tartrate [Lopressor 100 mg Tablet] 100 mg PO BID #60 08/04/16 History of Present Illness History of Present Illness: YOLY DIANE is a 70 year old male, he came to the emergency room this morning with his because of encephalopathy, patient spouse stated that that the patient has become more forgetful recently, he also had episode of urinary incontinence which is uncharacteristic , he also had a headache. He was seen and evaluated in the emergency room, initially CT scan of the head was done , it showed 3.7 low attenuation heterogeneous mass of the left anterior basal ganglia with moderate compression of the frontal horn the left lateral ventricle. The CAT scan of the head , could not differentiate between a stroke or neoplasm, MRI of the head recommended. MRI showed high-signal intensity lesions scattered throughout the white matter on flair imaging with distribution suggesting microvascular ischemic change. There was also rounded area of abnormal signal in the left lentiform nucleus measuring 2.5 x 3.5 cm. On diffusion imaging there is heterogeneous increased signal in the left basal ganglia most likely representing a recent subacute infarct. Hospital Course Hospital Course: Patient was admitted because of left basal ganglia stroke was treated according to stroke protocol. . He had a magnetic resonance angiogram of the brain, carotid Doppler, 2D echo. This test came back negative. He has no motor deficits, the main deficit is cognition which is intermittent. Physical Exam Vital Signs: Temp Pulse Resp BP Pulse Ox 97.6 F 78 16 126/80 H 100 08/04/16 12:07 08/04/16 14:00 08/04/16 12:07 08/04/16 12:07 08/04/16 12:07 Intake & Output 08/03/16 08/04/16 08/05/16 06:59 06:59 06:59 Intake Total 966 960 480 Balance 966 960 480 Weight 88.4 kg 86.6 kg General appearance: PRESENT: no acute distress, well-developed, well-nourished Head exam: PRESENT: atraumatic, normocephalic Eye exam: PRESENT: conjunctiva pink, EOMI, PERRLA Ear exam: PRESENT: normal external ear exam Neck exam: PRESENT: full ROM Respiratory exam: PRESENT: clear to auscultation marquita Cardiovascular exam: PRESENT: RRR, +S1, +S2 Pulses: PRESENT: normal dorsalis pedis pul, +2 pedal pulses bilateral Vascular exam: PRESENT: normal capillary refill GI/Abdominal exam: PRESENT: normal bowel sounds, soft Rectal exam: PRESENT: deferred Neurological exam: PRESENT: alert, awake, oriented to person, oriented to place , oriented to time, oriented to situation, CN II-XII grossly intact Psychiatric exam: PRESENT: appropriate affect, normal mood Skin exam: PRESENT: dry, intact, warm Results Laboratory Results: 08/04/16 04:47 08/04/16 04:47 08/04/16 08/04/16 04:47 04:47 WBC 8.0 RBC 4.87 Hgb 13.3 L Hct 39.8 MCV 82 MCH 27.3 MCHC 33.5 RDW 14.1 H Plt Count 219 Sodium 138.8 Potassium 4.3 Chloride 106 Carbon Dioxide 22 Anion Gap 11 BUN 21 H Creatinine 1.04 Est GFR ( Amer) > 60 Est GFR (Non-Af Amer) > 60 Glucose 142 H Calcium 9.7 08/01/16 08/01/16 08/01/16 18:19 18:19 18:19 Creatine Kinase 68 CK-MB (CK-2) 0.45 Troponin I < 0.012 08/02/16 08/02/16 00:31 06:15 Creatine Kinase CK-MB (CK-2) Troponin I < 0.012 < 0.012 Impressions: Head CT 08/01/16 00:26 IMPRESSION: 3.7 cm low attenuation lesion with mass-effect of the anterior left basal ganglia. Differential diagnosis includes subacute infarct or neoplasm. Contrast MRI recommended. Chest X-Ray 08/01/16 00:27 IMPRESSION: NO ACUTE RADIOGRAPHIC FINDING IN THE CHEST. Head MRI 08/01/16 03:32 IMPRESSION: ABNORMALITY IN THE LEFT BASAL GANGLIA DESCRIBED MOST LIKELY REPRESENTING RECENT SUBACUTE INFARCT. NONENHANCING MALIGNANCY SUCH A LOW- GRADE GLIOMA NOT ENTIRELY EXCLUDED BUT WOULD BE LESS LIKELY. FOLLOW-UP MRI IN SEVERAL DAYS MAY BE HELPFUL TO FOLLOW FOR ANY PROGRESSION OR IMPROVEMENT OF THIS FINDING. Carotid Doppler Study 08/01/16 17:57 IMPRESSION: NO HEMODYNAMICALLY SIGNIFICANT STENOSIS. Brain MRI with MRA 08/02/16 08:00 IMPRESSION: NORMAL MRA OF THE [place] OF [place].
[2016-08-04 16:22] VITALS: BP 128/84
== END 2016-08-04 16:38 | disposition home or self-care (01) | DRG 66 ==
LOC: ER 23:49 → EH 08-01 04:00 → UNDOADMIN 08-01 04:00 → 3W 08-01 11:55 → EH 08-01 14:00 → 3W 08-01 14:00
PROVIDERS: ADMIT Internal Medicine; ATTEND Internal Medicine
DX: I63.442 Cerebral infarction due to embolism of left cerebellar artery (principal); I25.10 Atherosclerotic heart disease of native coronary artery without angina pectoris; E78.5 Hyperlipidemia, unspecified; I10 Essential (primary) hypertension; E11.42 Type 2 diabetes mellitus with diabetic polyneuropathy; Z79.4 Long term (current) use of insulin; Z79.84 Long term (current) use of oral hypoglycemic drugs; Z79.82 Long term (current) use of aspirin; Z79.899 Other long term (current) drug therapy
CPT/HCPCS: 36415; 70450; 70544; 70553; 71010; 80048; 80053; 80061; 80307; 81001; 82550; 82553; 82962; 83036; 83735; 84484; 85025; 85027; 85610; 93005; 93010; 93306; 93880; 99285; A9577; G8978-GP; G8979-GP; G8980-GP; J1650; J1815; J3490

== ENCOUNTER 2018-08-25 15:17 | Observation (INO) | payer MEDICARE, OTHER ==
--- NOTE | 2018-08-25 16:20 | RADIOLOGY REPORT (SQ) ---
EXAM DESCRIPTION: U/S RETROPERITON (RENAL/AORTA) COMPLETED DATE/TIME: 08/25/2018 4:02 pm REASON FOR STUDY: ABN RESULTS OF KIDNEY FUNCTION STUDIES R94.4 ABNORMAL RESULTS OF KIDNEY FUNCTION STUDIES COMPARISON: None. TECHNIQUE: Dynamic and static grayscale images acquired of the kidneys and bladder and recorded on P ACS. Additional selected color Doppler and spectral images recorded. LIMITATIONS: None. FINDINGS: RIGHT KIDNEY: 8.1 cm. Increased cortical echogenicity. 2.2 cm potential solid lesion midpole. No hydronephrosis. No calcifications. LEFT KIDNEY: 10.7 cm. Increased cortical echogenicity. Several cysts measuring up to 2 cm. No s olid mass. No hydronephrosis. No calcifications. BLADDER: No masses. OTHER: No other significant finding. IMPRESSION: 1. Chronic medical renal disease. No hydronephrosis. 2. Potential solid lesion right kidney. Follow-up dedicated CT or MRI is recommended. TECHNICAL DOCUMENTATION: JOB ID: [id number] [employer]- All Rights Reserved Reading location - IP/workstation name: [email or web address]
[2018-08-27] MEDS ORDERED: NORMAL SALINE 1000 ML 1,000 ML IV PRN (17:00)
[2018-08-27 17:38] LABS: ABSOLUTE BASOPHILS # (AUTO) 0.1 10^3/uL (0.0-0.2); ABSOLUTE EOSINOPHILS # (AUTO) 0.1 10^3/uL (0.0-0.6); ABSOLUTE LYMPHOCYTES (AUTO) 1.7 10^3/uL (0.5-4.7); ABSOLUTE MONOCYTES (AUTO) 0.6 10^3/uL (0.1-1.4); ABSOLUTE NEUT (AUTO) 3.8 10^3/uL (1.7-8.2); BASOPHILS % (AUTO) 1.1 % (0-2); EOSINOPHILS % (AUTO) 1.1 % (0-6); HEMATOCRIT 34.2 % (37.9-51.0); HEMOGLOBIN 11.5 g/dL (13.5-17.0); MEAN CORPUSCULAR HEMOGLOBIN 27.4 pg (27.0-33.4); MEAN CORPUSCULAR HGB CONC 33.7 g/dL (32.0-36.0); MEAN CORPUSCULAR VOLUME 82 fl (80-97); MONOCYTES % (AUTO) 10.2 % (3-13); PLATELET COUNT 230 10^3/uL (150-450); RED CELL DISTRIBUTION WIDTH 14.4 % (11.5-14.0); SEGMENTED NEUTROPHILS % (AUTO) 60.6 % (42-78); TOTAL CELLS COUNTED % (AUTO) 100 %; WHITE BLOOD COUNT 6.2 10^3/uL (4.0-10.5)
[2018-08-27 17:58] LABS: ALANINE AMINOTRANSFERASE 17 U/L (21-72); ALBUMIN 4.2 g/dL (3.5-5.0); ALKALINE PHOSPHATASE 67 U/L (38-126); ANION GAP 11 (5-19); ASPARTATE AMINO TRANSFERASE 16 U/L (17-59); BILIRUBIN,DIRECT 0.3 mg/dL (0.0-0.4); BILIRUBIN,TOTAL 0.4 mg/dL (0.2-1.3); BLOOD UREA NITROGEN 22 mg/dL (7-20); CALCIUM 9.6 mg/dL (8.4-10.2); CARBON DIOXIDE 26 mmol/L (22-30); CHLORIDE 103 mmol/L (98-107); GLUCOSE 162 mg/dL (75-110); POTASSIUM 4.2 mmol/L (3.6-5.0); SODIUM 139.6 mmol/L (137-145); TOTAL PROTEIN 6.9 g/dL (6.3-8.2)
[2018-08-27] MEDS ORDERED: DEXTROSE 50%-WATER SYRINGE 12.5 GM/25 ML DOSE IV PRN (18:30)
[2018-08-27] MEDS ORDERED: GLUCAGON,HUMAN RECOMB 1 MG INJ IM PRN (18:30)
[2018-08-27] MEDS ORDERED: DEXTROSE 40% GEL 15 GM TUBE PO PRN (18:30)
[2018-08-27] MEDS ORDERED: DEXTROSE 50%-WATER SYRINGE 25 GM/50 ML DOSE IV PRN (18:30)
[2018-08-27] MEDS ORDERED: DEXTROSE 40% GEL 15 GM TUBE X 2 PO PRN (18:30)
[2018-08-27] MEDS ORDERED: (PENDING PHARMACY ID) (Insulin Aspart [Novolog Insulin (Aspart) 100 Unit/Ml] 10 UNITS) SQ SCH (19:30)
[2018-08-27 20:29] LABS: ANION GAP 9 (5-19); BLOOD UREA NITROGEN 22 mg/dL (7-20); CALCIUM 9.4 mg/dL (8.4-10.2); CARBON DIOXIDE 26 mmol/L (22-30); CHLORIDE 104 mmol/L (98-107); GLUCOSE 165 mg/dL (75-110)
--- NOTE | 2018-08-27 20:47 | PDOC H&P ---
History of Present Illness Admission Date/PCP: 08/27/18 16:33 AMENA BROWNE MD History of Present Illness: YOLY DIANE is a 72 year old male, He has diabetes mellitus, he was in the office last week for follow-up evaluation, the blood work that was drawn revealed elevated serum creatinine, it was 1.9, ultrasound of the kidney was done, it showed a small right kidney that measure 8.1 cm, with a potential solid lesion at the mid pole that measured 2.2 cm, the left kidney was full of several cysts. Patient was brought in for observation essentially for hydration and to obtain a dedicated CT scan of the kidney with IV contrast. The serum creatinine from today's lab is 1.4 suggesting that there could be a prerenal component to underlying chronic kidney disease. Past Medical History Cardiac Medical History: Reports: Coronary Artery Disease, Hyperlipidema, Hypertension Endocrine Medical History: Reports: Diabetes Mellitus Type 2 Social History Smoking Status: Never Smoker Frequency of Alcohol Use: None Hx Recreational Drug Use: No Drugs: None Hx Prescription Drug Abuse: No Family History Family History: Reviewed & Not Pertinent Parental Family History Reviewed: Yes Children Family History Reviewed: Yes Sibling(s) Family History Reviewed.: Yes Medication/Allergy Home Medications: Atorvastatin Calcium [Lipitor 80 mg Tablet] 80 mg PO QHS 08/27/18 Chlorpheniramine Maleate [Chlor-Trimeton 4 mg Tablet] 4 mg PO Q6HP PRN 08/27/18 Clopidogrel Bisulfate [Plavix 75 mg Tablet] 75 mg PO QHS 08/27/18 Fluticasone Propionate [Flonase Nasal Buna 50 Mcg/Buna 16 gm] 1 spray NASL DAILYP PRN 08/27/18 Glimepiride [Amaryl 4 mg Tablet] 4 mg PO DAILY 08/27/18 Insulin Aspart [Novolog Insulin (Aspart) 100 unit/mL] 10 units SQ MEALS 08/27/18 Insulin Glargine,Hum.rec.anlog [Lantus Insulin 100 Unit/1 ml 10 ml] 45 units SQ QHS 08/27/18 Losartan/Hydrochlorothiazide [Hyzaar 100-12.5 Tablet] 1 tab PO QHS 08/27/18 Metformin HCl [Glucophage] 1,000 mg PO Q12 08/27/18 Metoprolol Succinate [Toprol XL 100 mg Tablet] 100 mg PO QHS 08/27/18 Montelukast Sodium [Singulair 10 mg Tablet] 10 mg PO DAILYP PRN 08/27/18 Multivitamin [Tab-A-Justino (Multiple Vitamin) Tablet] 1 tab PO DAILY 08/27/18 Pioglitazone HCl [Actos] 30 mg PO DAILY 08/27/18 Sitagliptin Phosphate [Januvia] 100 mg PO DAILY 08/27/18 Allergies/Adverse Reactions: No Known Allergies Allergy (Verified 08/27/18 17:20) Review of Systems Constitutional: ABSENT: chills, fever(s), headache(s), weight gain, weight loss Eyes: ABSENT: visual disturbances Ears: ABSENT: hearing changes Cardiovascular: ABSENT: chest pain, dyspnea on exertion, edema, orthropnea, palpitations Respiratory: ABSENT: cough, hemoptysis Gastrointestinal: ABSENT: abdominal pain, constipation, diarrhea, hematemesis, hematochezia, nausea, vomiting Genitourinary: ABSENT: dysuria, hematuria Musculoskeletal: ABSENT: joint swelling Integumentary: ABSENT: rash, wounds Neurological: ABSENT: abnormal gait, abnormal speech, confusion, dizziness, focal weakness, syncope Psychiatric: ABSENT: anxiety, depression, homidical ideation, suicidal ideation Endocrine: ABSENT: cold intolerance, heat intolerance, menstrual abnormalities, polydipsia, polyuria Hematologic/Lymphatic: ABSENT: easy bleeding, easy bruising, lymphadenopathy Physical Exam Vital Signs: Temp Pulse Resp BP Pulse Ox 98.1 F 94 20 132/79 H 99 08/27/18 17:00 08/27/18 19:00 08/27/18 17:00 08/27/18 17:00 08/27/18 17:00 Intake & Output 08/26/18 08/27/18 08/28/18 06:59 06:59 06:59 Weight 87.4 kg General appearance: PRESENT: no acute distress, well-developed, well-nourished Head exam: PRESENT: atraumatic, normocephalic Eye exam: PRESENT: conjunctiva pink, EOMI, PERRLA Ear exam: PRESENT: normal external ear exam Mouth exam: PRESENT: moist, tongue midline Neck exam: PRESENT: full ROM Respiratory exam: PRESENT: clear to auscultation marquita Cardiovascular exam: PRESENT: RRR, +S1, +S2 Pulses: PRESENT: normal dorsalis pedis pul, +2 pedal pulses bilateral Vascular exam: PRESENT: normal capillary refill GI/Abdominal exam: PRESENT: normal bowel sounds, soft Rectal exam: PRESENT: deferred Neurological exam: PRESENT: alert, awake, oriented to person, oriented to place, oriented to time, oriented to situation, CN II-XII grossly intact Psychiatric exam: PRESENT: appropriate affect, normal mood Skin exam: PRESENT: dry, intact, warm Results Laboratory Results: 08/27/18 17:26 08/27/18 20:00 08/27/18 08/27/18 08/27/18 17:26 17:26 20:00 WBC 6.2 RBC 4.20 L Hgb 11.5 L Hct 34.2 L MCV 82 MCH 27.4 MCHC 33.7 RDW 14.4 H Plt Count 230 Seg Neutrophils % 60.6 Lymphocytes % 27.0 Monocytes % 10.2 Eosinophils % 1.1 Basophils % 1.1 Absolute Neutrophils 3.8 Absolute Lymphocytes 1.7 Absolute Monocytes 0.6 Absolute Eosinophils 0.1 Absolute Basophils 0.1 Sodium 139.6 139.0 Potassium 4.2 4.0 Chloride 103 104 Carbon Dioxide 26 26 Anion Gap 11 9 BUN 22 H 22 H Creatinine 1.46 H 1.38 H Est GFR ( Amer) 58 L > 60 Est GFR (Non-Af Amer) 48 L 51 L Glucose 162 H 165 H Calcium 9.6 9.4 Total Bilirubin 0.4 AST 16 L ALT 17 L Alkaline Phosphatase 67 Total Protein 6.9 Albumin 4.2 Impressions: Renal Ultrasound 08/25/18 15:17 IMPRESSION: 1. Chronic medical renal disease. No hydronephrosis. 2. Potential solid lesion right kidney. Follow-up dedicated CT or MRI is recommended. 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
[2018-08-27] MEDS: INSULIN LISPRO 100 UNIT/ML 3 ML VIAL SUBCUT SCH (21:32)
[2018-08-27] MEDS ORDERED: ATORVASTATIN CALCIUM 80 MG TABLET PO SCH (22:00)
[2018-08-27] MEDS ORDERED: METOPROLOL SUCCINATE 50 MG TAB.SR.24H PO SCH (22:00)
[2018-08-27] MEDS ORDERED: LOSARTAN POTASSIUM 50 MG TABLET PO SCH (22:00)
[2018-08-27] MEDS ORDERED: HYDROCHLOROTHIAZIDE 25 MG TABLET PO SCH (22:00)
[2018-08-27] MEDS ORDERED: INSULIN GLARGINE,HUM.REC.ANLOG 1,000 UNIT/10 ML VIAL SUBCUT SCH (22:00)
[2018-08-27] MEDS ORDERED: (PENDING PHARMACY ID) (Losartan/Hydrochlorothiazide [Hyzaar 100-12.5 Tablet] 1 TAB) PO SCH (22:00)
[2018-08-27] MEDS ORDERED: CLOPIDOGREL BISULFATE 75 MG TABLET PO SCH (22:00)
[2018-08-28 05:14] LABS: ANION GAP 9 (5-19); BLOOD UREA NITROGEN 20 mg/dL (7-20); CALCIUM 9.2 mg/dL (8.4-10.2); CARBON DIOXIDE 24 mmol/L (22-30); CHLORIDE 106 mmol/L (98-107); GLUCOSE 145 mg/dL (75-110); POTASSIUM 3.9 mmol/L (3.6-5.0); SODIUM 138.7 mmol/L (137-145)
[2018-08-28] MEDS: INSULIN LISPRO 100 UNIT/ML 3 ML VIAL SUBCUT SCH (07:30)
[2018-08-28] MEDS ORDERED: INSULIN LISPRO 100 UNIT/ML 3 ML VIAL SUBCUT SCH (08:00)
--- NOTE | 2018-08-28 08:41 | RADIOLOGY REPORT (SQ) ---
EXAM DESCRIPTION: CT ABD/PELVIS COMBO COMPLETED DATE/TIME: 08/28/2018 8:24 am REASON FOR STUDY: ? RENAL MASS R94.4 ABNORMAL RESULTS OF KIDNEY FUNCTION STUDIES COMPARISON: Bilateral renal ultrasound 08/25/2018 TECHNIQUE: CT scan of the abdomen and pelvis performed with and without intravenous contrast, and wi thout oral contrast. Contrasted imaging performed helical scanning technique and dynamic intravenous contrast injection. Images reviewed with lung, soft tissue, and bone windows. Reconstructed coronal a nd sagittal MPR images reviewed. Delayed images for evaluation of the urinary system also acquired. A ll images stored on PACS. All CT scanners at this facility use dose modulation, iterative reconstruction, and/or weight based d osing when appropriate to reduce radiation dose to as low as reasonably achievable (ALARA). [facility]: Dose Right [facility]: CareDose [facility]: Dose Right [facility]: Teradose 4D [facility]: Novadiol CONTRAST TYPE AND DOSE: contrast/concentration: Isovue 350.00 mg/ml; Total Contrast Delivered: 100.0 ml; Total Saline Delivered: 72.0 ml RENAL FUNCTION: Creatinine 1.4 RADIATION DOSE: CT Rad equipment meets quality standard of care and radiation dose reduction techniq ues were employed. CTDIvol: 10.8 - 16.6 mGy. DLP: 1721 mGy-cm. . LIMITATIONS: None. FINDINGS: NON-CONTRASTED IMAGING: No significant renal or bladder calcifications. No other significa nt organ calcifications. POST-CONTRASTED IMAGING: LOWER CHEST: No significant findings. No nodules or infiltrates. LIVER: Normal size. Benign-appearing 5 cm hemangioma right lobe liver. No dilated ducts. SPLEEN: Normal size. No focal lesions. PANCREAS: No masses. No significant calcifications. No adjacent inflammation or peripancreatic fluid collections. Pancreatic duct not dilated. GALLBLADDER: No identified stones by CT criteria. No inflammatory changes to suggest cholecystitis. ADRENAL GLANDS: No significant masses or asymmetry. RIGHT KIDNEY AND URETER: No solid masses. There is cortical thinning, and lobulation of the contour of the right kidney without discrete mass. No significant calcifications. No hydronephrosis or hyd roureter. LEFT KIDNEY AND URETER: No solid masses. 1.2 cm left upper pole, 2 cm left midpole, 2 cm and 1.8 cm left lower pole renal cortical cysts. No significant calcifications. No hydronephrosis or hydroure ter. AORTA AND VESSELS: No aneurysm. No dissection. Renal arteries, SMA, celiac without stenosis. RETROPERITONEUM: No retroperitoneal adenopathy, hemorrhage or masses. BOWEL AND PERITONEAL CAVITY: No masses or inflammatory changes. No free fluid or peritoneal masses. APPENDIX: Normal. PELVIS: No mass. No free fluid. Normal bladder. ABDOMINAL WALL: No masses. No hernias. BONES: No significant or acute findings. OTHER: No other significant finding. IMPRESSION: NO SIGNIFICANT OR ACUTE ABNORMALITY IN THE ABDOMEN OR PELVIS. NO CT EVIDENCE OF RIGHT RENAL MASS. LOBULATION RIGHT KIDNEY. BENIGN LEFT RENAL CORTICAL CYSTS. TECHNICAL DOCUMENTATION: JOB ID: [id number] Quality ID # [id number]: Final reports with documentation of one or more dose reduction techniques (e.g., Au tomated exposure control, adjustment of the mA and/or kV according to patient size, use of iterative reconstruction technique) 2010 [employer]- All Rights Reserved Reading location - IP/workstation name: [email or web address]
[2018-08-28] MEDS ORDERED: MULTIVITAMIN TABLET PO SCH (10:00)
[2018-08-28] MEDS ORDERED: GLIMEPIRIDE 4 MG TABLET PO SCH (10:00)
[2018-08-28] MEDS ORDERED: PIOGLITAZONE HCL 30 MG TABLET PO SCH (10:00)
[2018-08-28] MEDS ORDERED: SITAGLIPTIN PHOSPHATE 50 MG TABLET PO SCH (10:00)
[2018-08-28 10:52] VITALS: BP 146/72
--- NOTE | 2018-08-28 14:16 | PDOC DISCHARGE SUMMARY ---
General - Admit/Disc Date/PCP Admission Date/Primary Care Provider: 08/27/18 16:33 AMENA BROWNE MD Discharge Date: 08/28/18 - Discharge Diagnosis (1) Acute kidney injury Is this a current diagnosis for this admission?: Yes (2) Multiple renal cysts Is this a current diagnosis for this admission?: Yes (3) T2DM (type 2 diabetes mellitus) Is this a current diagnosis for this admission?: Yes - Additional Information Discharge Diet: Diabetic Discharge Activity: Activity As Tolerated Home Medications: RX: Atorvastatin Calcium [Lipitor 80 mg Tablet] 80 mg PO QHS 08/27/18 RX: Chlorpheniramine Maleate [Chlor-Trimeton 4 mg Tablet] 4 mg PO Q6HP PRN 08/27/18 RX: Clopidogrel Bisulfate [Plavix 75 mg Tablet] 75 mg PO QHS 08/27/18 RX: Fluticasone Propionate [Flonase Nasal Check 50 Mcg/Check 16 gm] 1 spray NASL DAILYP PRN 08/27/18 RX: Glimepiride [Amaryl 4 mg Tablet] 4 mg PO DAILY 08/27/18 RX: Insulin Aspart [Novolog Insulin (Aspart) 100 unit/mL] 10 units SQ MEALS 08/27/18 RX: Insulin Glargine,Hum.rec.anlog [Lantus Insulin 100 Unit/1 ml 10 ml] 45 units SQ QHS 08/27/18 RX: Losartan/Hydrochlorothiazide [Hyzaar 100-12.5 Tablet] 1 tab PO QHS 08/27/18 RX: Metformin HCl [Glucophage] 1,000 mg PO Q12 08/27/18 RX: Metoprolol Succinate [Toprol XL 100 mg Tablet] 100 mg PO QHS 08/27/18 RX: Montelukast Sodium [Singulair 10 mg Tablet] 10 mg PO DAILYP PRN 08/27/18 RX: Multivitamin [Tab-A-Justino (Multiple Vitamin) Tablet] 1 tab PO DAILY 08/27/18 RX: Pioglitazone HCl [Actos] 30 mg PO DAILY 08/27/18 RX: Sitagliptin Phosphate [Januvia] 100 mg PO DAILY 08/27/18 History of Present Illness History of Present Illness: YOLY DIANE is a 72 year old male, He has diabetes mellitus, he was in the office last week for follow-up evaluation, the blood work that was drawn revealed elevated serum creatinine, it was 1.9, ultrasound of the kidney was done, it showed a small right kidney that measure 8.1 cm, with a potential solid lesion at the mid pole that measured 2.2 cm, the left kidney was full of several cysts. Patient was brought in for observation essentially for hydration and to obtain a dedicated CT scan of the kidney with IV contrast. The serum creatinine from today's lab is 1.4 suggesting that there could be a prerenal component to underlying chronic kidney disease. Hospital Course Hospital Course: Patient was admitted for evaluation of azotemia with a background of abnormal kidney ultrasound, a kidney mass was suspected. He was treated with IV fluid with normalization of renal function, a CT scan of the abdomen and pelvis was obtained, it demonstrated multiple cysts in the left kidney, there was 1.2 cm cyst in the left upper pole, 2 cm in the left midpole 2 cm in the left lower pole there was no mass identified in the right kidney. Physical Exam Vital Signs: Temp Pulse Resp BP Pulse Ox 98.1 F 90 20 146/72 H 98 08/28/18 10:48 08/28/18 10:48 08/28/18 10:48 08/28/18 10:48 08/28/18 10:48 Intake & Output 08/27/18 08/28/18 08/29/18 06:59 06:59 06:59 Intake Total 300 Output Total 900 Balance -600 Weight 90.1 kg General appearance: PRESENT: no acute distress, well-developed, well-nourished Head exam: PRESENT: atraumatic, normocephalic Eye exam: PRESENT: conjunctiva pink, EOMI, PERRLA Ear exam: PRESENT: normal external ear exam Mouth exam: PRESENT: moist, tongue midline Neck exam: PRESENT: full ROM Respiratory exam: PRESENT: clear to auscultation marquita Cardiovascular exam: PRESENT: RRR, +S1, +S2 Pulses: PRESENT: normal dorsalis pedis pul, +2 pedal pulses bilateral Vascular exam: PRESENT: normal capillary refill GI/Abdominal exam: PRESENT: normal bowel sounds, soft Rectal exam: PRESENT: deferred Neurological exam: PRESENT: alert, awake, oriented to person, oriented to place, oriented to time, oriented to situation, CN II-XII grossly intact Psychiatric exam: PRESENT: appropriate affect, normal mood Skin exam: PRESENT: dry, intact, warm Results Laboratory Results: 08/27/18 17:26 08/28/18 03:51 08/27/18 08/27/18 08/27/18 17:26 17:26 20:00 WBC 6.2 RBC 4.20 L Hgb 11.5 L Hct 34.2 L MCV 82 MCH 27.4 MCHC 33.7 RDW 14.4 H Plt Count 230 Seg Neutrophils % 60.6 Lymphocytes % 27.0 Monocytes % 10.2 Eosinophils % 1.1 Basophils % 1.1 Absolute Neutrophils 3.8 Absolute Lymphocytes 1.7 Absolute Monocytes 0.6 Absolute Eosinophils 0.1 Absolute Basophils 0.1 Sodium 139.6 139.0 Potassium 4.2 4.0 Chloride 103 104 Carbon Dioxide 26 26 Anion Gap 11 9 BUN 22 H 22 H Creatinine 1.46 H 1.38 H Est GFR ( Amer) 58 L > 60 Est GFR (Non-Af Amer) 48 L 51 L Glucose 162 H 165 H Calcium 9.6 9.4 Total Bilirubin 0.4 AST 16 L ALT 17 L Alkaline Phosphatase 67 Total Protein 6.9 Albumin 4.2 08/28/18 03:51 WBC RBC Hgb Hct MCV MCH MCHC RDW Plt Count Seg Neutrophils % Lymphocytes % Monocytes % Eosinophils % Basophils % Absolute Neutrophils Absolute Lymphocytes Absolute Monocytes Absolute Eosinophils Absolute Basophils Sodium 138.7 Potassium 3.9 Chloride 106 Carbon Dioxide 24 Anion Gap 9 BUN 20 Creatinine 1.17 Est GFR ( Amer) > 60 Est GFR (Non-Af Amer) > 60 Glucose 145 H Calcium 9.2 Total Bilirubin AST ALT Alkaline Phosphatase Total Protein Albumin Impressions: Renal Ultrasound 08/25/18 15:17 IMPRESSION: 1. Chronic medical renal disease. No hydronephrosis. 2. Potential solid lesion right kidney. Follow-up dedicated CT or MRI is recommended. Abdomen/Pelvis CT 08/28/18 07:57 IMPRESSION: NO SIGNIFICANT OR ACUTE ABNORMALITY IN THE ABDOMEN OR PELVIS. NO CT EVIDENCE OF RIGHT RENAL MASS. LOBULATION RIGHT KIDNEY. BENIGN LEFT RENAL CORTICAL CYSTS. Qualifiers - * PATIENT BEING DISCHARGED WITH ANY OF THE FOLLOWING DIAGNOSIS: No VTE patient discharged on overlapping Therapy?: No Reason(s) for not prescribing Overlap Therapy:: Not indicated Stroke Pt being discharged on Anti-thrombolytic therapy?: No Reason(s) for not prescribing Anti-thrombolytic therapy:: Not indicated Stroke Pt being discharged on Anti-coagulation therapy?: No Reason(s) for not prescribing Anti-coagulation therapy:: Not indicated Stroke Pt being discharged on Statins?: No Reason(s) for not prescribing Statins therapy:: Not indicated SC Pt being discharged on Aspirin therapy?: No Reason(s) for not prescribing Aspirin therapy:: Not indicated SC Pt being discharged on Statins?: No Reason(s) for not prescribing Statin therapy:: Not indicated SC Pt discharged ACEI/ARBS?: No Reason(s) for not prescribing ACEI/ARBS:: Not indicated Acute Heart Failure - Is this a Heart Failure Patient?: No 3. Anticoagulant therapy for permanect/persistent/paraoxysmal Afib or Aflutter: N/A
== END 2018-08-28 11:29 | disposition home or self-care (01) ==
LOC: RAD 15:17 → 4N 08-27 16:33 → UNDOADMOB 08-27 16:33
PROVIDERS: ADMIT Internal Medicine; ATTEND Internal Medicine
DX: N17.9 Acute kidney failure, unspecified (principal); Q61.02 Congenital multiple renal cysts; I12.9 Hypertensive chronic kidney disease with stage 1 through stage 4 chronic kidney disease, or unspecified chronic kidney disease; E11.22 Type 2 diabetes mellitus with diabetic chronic kidney disease; N18.9 Chronic kidney disease, unspecified; D41.01 Neoplasm of uncertain behavior of right kidney; I25.10 Atherosclerotic heart disease of native coronary artery without angina pectoris; E78.5 Hyperlipidemia, unspecified; Z79.899 Other long term (current) drug therapy; Z79.4 Long term (current) use of insulin
CPT/HCPCS: 36415 ×2; 82962 ×2; 85025; 80076; 80048 ×2; 76770; 74178; G0378 ×2; A9270 ×9; J7030; J1815; J3490